=== PATIENT | male | born 1950 | race Caucasian/White ===

== ENCOUNTER 2020-01-17 13:42 | Emergency (ER) | payer MEDICARE, SELFPAY ==
[2020-01-17 13:43] VITALS: PULSE 65
[2020-01-17 13:46] VITALS: PULSE 72; RESP 18; TEMP 36.7; O2SAT 100; BMI 43.9
[2020-01-17 13:54] VITALS: BP 159/67; PULSE 69; RESP 16; O2SAT 95
--- NOTE | 2020-01-17 13:54 | ED_ITS ---
HPI - Extremity Problem General: Chief complaint: Extremity Problem,Nontraumatic Stated complaint: left foot swelling Time Seen by Provider: 01/17/20 13:54 History of Present Illness: HPI Narrative: Patient is a 69-year-old male who comes into the ED with left ankle and foot pain. Symptoms started 3 days ago and he denies any trauma or injury. Patient says he has had gout in the past and joint pain in the past. This pain seems to be similar to his gout pain in the past. He has swelling in his left ankle and it tender and painful when he puts weight on his left foot. His left big toe region has some swelling and is tender to the touch as well. Both areas are also warm to to the touch. Patient denies any past blood clots, DVTs or PE. Associated symptoms: Deny chest pain, fever(s) or rash Review of Systems Const: Denies: fever, chills or fatigue Eyes: Denies: change in vision or eye discomfort ENMT: Denies: throat pain, painful swallowing, nasal discharge or nasal congestion Card: Denies: chest pain, palpitations, edema, swelling of feet/ankles, shortness of breath on exertion or shortness of breath when lying down Resp: Denies: shortness of breath, productive cough or non-productive cough GI: Denies: abdominal pain, nausea, vomiting, diarrhea, constipation or blood in stool : Denies: flank pain, difficulty urinating, painful urination or blood in urine Musc: Reports: extremity swelling (left ankle and left great toe) and joint warmth (left ankle and left great toe); Denies: neck pain or back pain Skin/Breast: Denies: rash or new lesion Neuro: Denies: headache, numbness in extremities or weakness in extremities [facility] ED PFSH: Social History Smoking and tobacco status: former smoker Physical Exam Const: COMMON NORMALS: oriented x3 HENMT: COMMON NORMALS: normocephalic HEAD & SCALP: normocephalic MOUTH: oral and palatal mucosa normal THROAT: posterior oropharynx normal and uvula midline Neck/C-Spine: COMMON NORMALS: supple GENERAL: Yes normal visual inspection Resp: COMMON NORMALS: normal respiratory effort, no retractions, no use of accessory muscles and clear to auscultation bilaterally AUSCULTATION: clear to auscultation bilaterally Cardio: COMMON NORMALS: regular rate, regular rhythm, S1 normal heart sound, S2 normal heart sound, no gallops, no clicks, no murmurs and peripheral pulses 2+ throughout RATE: regular rate RHYTHM: regular rhythm HEART SOUNDS: S1 normal and S2 normal PERIPHERAL PULSES: pulses 2+ throughout GI: COMMON NORMALS: normal to inspection, nondistended, normoactive bowel sounds, soft to palpation, non-tender and no masses PALPATION: Yes soft : COMMON NORMALS: Yes no CVA tenderness BLADDER/KIDNEY EXAM: Yes no CVA tenderness Back/Pelvis: COMMON NORMALS: no CVA tenderness Extremity: LEFT LOWER EXTREMITY: Yes ankle joint Left ankle: Yes inspection (Erythema, warmth around ankle joint. Some mild swelling.), Yes palpation (tender around lateral ankle joint), Yes ROM (limited due to pain) and Yes neurovascular exam (intact) and Yes foot & digits Left foot and digits: Yes inspection (Erythema and warmth over metatarsophalangeal joint), Yes palpation (tender), Yes ROM (limited due to pain), Yes neurovascular exam (intact) and Yes tendon exam (intact) Neuro: COMMON NORMALS: oriented x3 and moves all extremities Skin: COMMON NORMALS: no rashes or lesions noted GENERAL SKIN EXAM: no rashes or lesions noted Course Vital Signs: Vital signs: Vital Signs Temperature 98.0 F 01/17/20 13:46 Pulse Rate 63 01/17/20 16:20 Respiratory Rate 18 01/17/20 16:20 Blood Pressure 163/92 01/17/20 16:20 Pulse Oximetry 99 01/17/20 16:20 MDM - Extremity (Nontraumatic) MDM Narrative: Medical decision making narrative: Patient is a 69-year-old male who comes into the ED with left lower extremity pain and swelling. An ultrasound venous duplex of his left lower extremity was ordered and it ruled out any blood clot. Physical exam is remarkable for tenderness, erythema and warmth over the left lateral ankle joint and the left metatarsophalangeal joint. Patient has an extensive history of gout. Patient was diagnosed with gout in put on colchicine and allopurinol. I discussed with patient the importance of following up with his PCP in 5 to 7 days for reevaluation. I told the patient if the symptoms are not improving on these medications after a 3 days he can return to the ED or go to his scheduled PCP follow-up. Imaging Data^: Xray Ortho: Attestation: I personally reviewed and interpreted this imaging study as fol lows: Radiologist's impression: [address] [place] [address] XRay Report Signed Patient: Jorge Conn Unit #: [id number] : 1950 Age/Sex: 69 / M ADM Date: 01/17/20 Loc: ER Room/Bed: Attending Dr: Ordering Provider/Ordering MD: Torres Garcia Date of Service: 01/17/20 Procedure(s): XR ankle LT 2V 06572 Accession Number(s): [id number] Report Number: [id number] PROCEDURE INFORMATION: Exam: XR Left Ankle Exam date and time: 01/17/2020 2:25 PM Age: 69 years old Clinical indication: Pain; Swelling, leg or foot; Ankle and foot; Left; Additional info: Pain and swelling TECHNIQUE: Imaging protocol: XR Left ankle. Views: 1 or 2 views. COMPARISON: No relevant prior studies available. FINDINGS: Bones/joints: No acute fracture. No dislocation. Prominent calcaneal spur noted. Degenerative changes at the tibiotalar joint. Soft tissues: Mild bilateral ankle edema. XR/XR ankle LT 2V [id number] IMPRESSION: No acute fracture. Mild bilateral ankle edema. Dictated By: José Luis Ag MD Signed By: José Luis Ag MD Signed Date/Time: 01/17/20 1531 DD/ 1530 Other Xray: Attestation: I personally reviewed and interpreted this imaging study as follows : Radiologist's impression: [address] [place] [address] XRay Report Signed Patient: Jorge Conn Unit #: [id number] : 1950 Age/Sex: 69 / M ADM Date: 01/17/20 Loc: ER Room/Bed: Attending Dr: Ordering Provider/Ordering MD: Torres Garcia Date of Service: 01/17/20 Procedure(s): XR foot LT 2V 34799 Accession Number(s): [id number] Report Number: [id number] PROCEDURE INFORMATION: Exam: XR Left Foot Exam date and time: 01/17/2020 2:25 PM Age: 69 years old Clinical indication: Pain; Swelling, leg or foot; Ankle and foot; Left; Additional info: Pain and swelling in big toe TECHNIQUE: Imaging protocol: XR Left foot. Views: 1 or 2 views. COMPARISON: No relevant prior studies available. FINDINGS: Bones/joints: No acute fracture. No dislocation. Degenerative changes are noted. Soft tissues: Soft tissue edema of the great toe. XR/XR foot LT 2V [id number] IMPRESSION: No acute fracture. Mild soft tissue edema of the great toe. Dictated By: José Luis Ag MD Signed By: José Luis Ag MD Signed Date/Time: 01/17/20 1533 DD/ 1532 US Vascular: Attestation: I personally reviewed and interpreted this imaging study as follows: Radiologist's impression: Prelim report of ultrasound venous duplex of the left lower extremity?no clots or DVT seen upon exam. Discharge Plan Discharge Patient Disposition: Home, Self-Care Clinical Impression: Gout Qualifiers: Gout site: ankle Gout etiology: unspecified cause Chronicity: acute Laterality: left Qualified Code(s): M10.9 - Gout, unspecified Condition: Stable Prescriptions: New allopurinol 100 mg tablet 100 mg PO BID Qty: 30 RF: 0 colchicine 0.6 mg tablet 0.6 mg PO DAILY Qty: 14 RF: 0 No Action chlorthalidone 25 mg tablet 25 mg PO BID PRN (Reason: Edema) RF: 0 Aspir-81 81 mg Tablet,Delayed Release (Dr/Ec) 81 mg PO DAILY RF: 0 olmesartan 40 mg tablet 40 mg PO DAILY RF: 0 Natural Herb Pill See Rx Instructions .ROUTE .COMPLEX RF: 0 Vitamin B-12 1 tab PO DAILY RF: 0 Discharge Orders: Discharge Order (Routine); Ordered 01/17/20 Ordered By: Torres Garcia Referrals: Ivanna Romero DO [Primary Care Provider] - Discharge Diet: Regular Discharge Activity: Increase activity as tolerated Patient Instructions: Gout Activity Restrictions/Additional Instructions: Follow-up with your PCP in 5 days for reevaluation. Take the allopurinol (is used for gout prevention) as prescribed. The colchicine (treats the acute pain) you can take up to 2 tabs daily as needed until acute pain resolves. Make sure to follow-up with your PCP to get pain reevaluated. Drink plenty of fluids and stay hydrated. Discharge Date/Time: 01/17/20 16:26 Coding Level of Care Code ED Analyst [employer] for Maria E Fwspencer Exam Comprehensive
--- NOTE | 2020-01-17 14:21 | USR_ITS ---
PROCEDURE INFORMATION: Exam: US Duplex Left Lower Extremity Veins, Limited Exam date and time: 01/17/2020 2:22 PM Age: 69 years old Clinical indication: Pain; Leg, lower; Left; Additional info: Pain and swelling in lower left leg. No injury TECHNIQUE: Imaging protocol: Real-time Duplex ultrasound of the Left Lower Extremity with 2-D ordonez scale, color Doppler flow and spectral waveform analysis with image documentation. Limited exam focused on the left lower extremity veins. COMPARISON: No relevant prior studies available. FINDINGS: Left deep veins: Unremarkable. The common femoral, femoral, proximal profunda femoral and popliteal veins are patent without thrombus. Normal Doppler waveforms. Normal compressibility and/or augmentation response. Left superficial veins: Unremarkable. Saphenofemoral junction is patent without thrombus. Soft tissues: Unremarkable. US/CV venous duplex [facility] [id number] IMPRESSION: No acute findings. No evidence of deep vein thrombosis.
--- NOTE | 2020-01-17 14:22 | XRR_ITS ---
PROCEDURE INFORMATION: Exam: XR Left Foot Exam date and time: 01/17/2020 2:25 PM Age: 69 years old Clinical indication: Pain; Swelling, leg or foot; Ankle and foot; Left; Additional info: Pain and swelling in big toe TECHNIQUE: Imaging protocol: XR Left foot. Views: 1 or 2 views. COMPARISON: No relevant prior studies available. FINDINGS: Bones/joints: No acute fracture. No dislocation. Degenerative changes are noted. Soft tissues: Soft tissue edema of the great toe. XR/XR foot LT 2V [id number] IMPRESSION: No acute fracture. Mild soft tissue edema of the great toe.
--- NOTE | 2020-01-17 14:22 | XRR_ITS ---
PROCEDURE INFORMATION: Exam: XR Left Ankle Exam date and time: 01/17/2020 2:25 PM Age: 69 years old Clinical indication: Pain; Swelling, leg or foot; Ankle and foot; Left; Additional info: Pain and swelling TECHNIQUE: Imaging protocol: XR Left ankle. Views: 1 or 2 views. COMPARISON: No relevant prior studies available. FINDINGS: Bones/joints: No acute fracture. No dislocation. Prominent calcaneal spur noted. Degenerative changes at the tibiotalar joint. Soft tissues: Mild bilateral ankle edema. XR/XR ankle LT 2V [id number] IMPRESSION: No acute fracture. Mild bilateral ankle edema.
[2020-01-17] MEDS: HYDROcodone-acetaminophen 7.5-325 mg Tablet 1 TAB PO (14:34)
[2020-01-17] MEDS: colchicine 0.6 mg Tablet 1.2 MG PO (16:19)
[2020-01-17 16:20] VITALS: BP 163/92; PULSE 63; RESP 18; O2SAT 99
== END 2020-01-17 16:26 | disposition home or self-care (01) ==
PROVIDERS: Emergency Provider Physician Assistant; Family Provider Family Medicine; PCP Family Medicine
DX: M10.9 Gout, unspecified (principal); Z87.891 Personal history of nicotine dependence; M79.662 Pain in left lower leg
CPT/HCPCS: 12345; 73600; 73620; 93971; 99281; 99283

== ENCOUNTER 2021-03-13 05:58 | Emergency (ER) | payer MEDICARE, SELFPAY ==
[2021-03-13 05:59] VITALS: BP 252/130; PULSE 64; RESP 17; TEMP 36.7; O2SAT 96; BMI 44.3
--- NOTE | 2021-03-13 06:02 | ECG_ITS ---
[facility] Test Date: 2021-03-13 Pat Name: Jorge Conn Department: Room: Gender: Male Insurance Counsel: : 1950 Requested By: James Whitaker Order Number: [id number] Rafita MD: Charlotte Tijerina M.D. Measurements Intervals [place] Rate: 66 P: 40 [place]: 202 QRS: 18 QRSD: 88 T: 34 QT: 415 QTc: 437 Interpretive Statements SINUS RHYTHM POSSIBLE LEFT ATRIAL ENLARGEMENT [-0.1mV P WAVE IN V1/V2] No previous ECG available for comparison Electronically Signed On 03-14-2021 9:30:41 CDT by Charlotte Tijerina M.D. [id number]
--- NOTE | 2021-03-13 06:02 | ED_ITS ---
HPI - SOB/Dyspnea General: Chief Complaint: Abdominal Pain Stated Complaint: sob Time Seen by Provider: 03/13/21 06:00 History of Present Illness: HPI Narrative: 70-year-old male presents to the emergency room with complaint of shortness of breath. Blood pressures been elevated despite oral antihypertensives with no relief. Initially on arrival his blood pressure was 252/130 he denies any headache denies any nausea vomiting but generally not feeling well. Biggest complaint at the initial presentation is abdominal pain with distention. He does not wear his CPAP. He also has increased edema of his lower extremities and orthopnea. Some vague chest pain as well. MD elicited complaint: shortness of breath, cough and chest pain Onset (ago): hour(s) Context: elevated blood glucose Timing: constant Severity: moderate Exacerbating factors: lying flat and exertion Relieving factors: rest and upright position Associated symptoms: Deny abdominal pain, chest congestion, chest pain, cough, diaphoresis, dizziness, extremity pain, fever(s), hemoptysis, lightheadedness, myalgias, nausea, orthopnea, palpitations, paresthesias, polydipsia, polyuria, rash, sense of impending doom, syncope or vomiting Treatment prior to arrival: none Review of Systems Const: Denies: fever(s) or diaphoresis ENMT: Denies: throat pain, ear or mastoid pain, nasal discharge or nasal congestion Card: Denies: chest pain, palpitations, lightheadedness, syncope or orthopnea Resp: Denies: hemoptysis or chest congestion GI: Denies: abdominal pain, nausea or vomiting : Denies: flank pain, dysuria, urinary frequency or urinary urgency Musc: Denies: extremity pain Skin/Breast: Denies: rash or pruritus Neuro: Denies: dizziness Endo: Denies: polyuria or polydipsia PFS ED PFSH: Social History Smoking and tobacco status: former smoker Physical Exam Const: COMMON NORMALS: no acute distress GENERAL APPEARANCE: cooperative and comfortable ORIENTATION/CONSCIOUSNESS: Yes awake, Yes oriented to person, Yes oriented to place and Yes oriented to time HENMT: COMMON NORMALS: normocephalic, atraumatic, hearing grossly normal bilaterally, external ears normal, EAC's normal, TM's normal bilaterally, Normal nasal mucous membranes and turbinates present, moist oral mucous membranes and oropharynx normal HEAD & SCALP: normocephalic and atraumatic NOSE: Normal nasal mucous membranes and turbinates present EXTERNAL EAR: Yes external ears normal EXTERNAL AUDITORY CANAL: EAC's normal TYMPANIC MEMBRANE: TM's normal bilaterally Eye: COMMON NORMALS: Equal, round and reactive pupils present, EOMs intact bilaterally, conjunctivae normal and no scleral icterus CONJUNCTIVA: Yes conjunctivae normal PUPIL: Yes Equal, round and reactive pupils present Neck/C-Spine: COMMON NORMALS: full ROM, no lymphadenopathy, supple and no JVD Lymph: LYMPHATIC: no lymphadenopathy noted and no lymphedema noted Resp: COMMON NORMALS: normal respiratory effort, No retractions, No use of accessory muscles and clear to auscultation bilaterally AUSCULTATION: clear to auscultation bilaterally Cardio: COMMON NORMALS: no JVD, regular rate, regular rhythm and No murmurs present (Cardio) RATE: regular rate RHYTHM: regular rhythm GI: COMMON NORMALS: Soft to palpation and No hepatosplenomegaly present AUSCULTATION: Yes normoactive bowel sounds PALPATION: Yes Soft to palpation, No Tenderness to palpation present (GI), No Guarding due to palpation present (GI) and Yes No hepatosplenomegaly present Extremity: COMMON NORMALS: normal to inspection, capillary refill normal, no clubbing, cyanosis or edema, no calf tenderness and no pedal edema Neuro: SENSORIUM/ORIENTATION: Yes oriented to person, Yes oriented to place and Yes oriented to time Skin: COMMON NORMALS: no rashes or lesions noted GENERAL SKIN EXAM: no rashes or lesions noted Course Vital Signs: Vital signs: Vital Signs Temperature 98.1 F 03/13/21 05:59 Pulse Rate 81 03/13/21 09:58 Respiratory Rate 28 H 03/13/21 09:58 Blood Pressure 180/82 03/13/21 09:58 Pulse Oximetry 98 03/13/21 09:58 MDM - SOB/Dyspnea MDM Narrative: Medical decision making narrative: Reviewed findings with the patient. He does need to improve on blood pressure control and improve compliance with his CPAP as that will affect his blood pressure as well. We will increase his hydralazine to 50 4 times daily add isosorbide mononitrate 30 daily and also add amlodipine. Serial troponins were negative. EKG did not show anything acute return if his problems follow-up with his primary care doctor within the next 2 to 3 days. Lab Data: Labs: Lab Results 03/13/21 03/13/21 03/13/21 Range/Units 05:10 05:10 05:10 WBC 9.1 (4.0-10.0) 10^3/ uL RBC 4.92 (4.1-5.3) 10^6/u L Hgb 14.0 (11.7-16.6) g/dL Hct 44.6 (42.0-52.0) % MCV 90.7 (80-94) fL MCH 28.5 (28.0-34.0) pg MCHC 31.4 (30.0-36.0) g/dL RDW 14.4 (12.1-15.1) % Plt Count 248 (130-400) 10^3/c mm MPV 12.4 H (7.4-10.4) fL Neut % (Auto) 55.2 % Lymph % (Auto) 31.5 % Mcnairy % (Auto) 8.6 % Eos % (Auto) 3.3 % Baso % (Auto) 0.7 % Neut # (Auto) 5.01 (1.8-7.7) 10^3/u L Lymph # (Auto) 2.9 (0.8-4.8) 10^3/u L Mcnairy # (Auto) 0.8 (0.2-0.9) 10^3/u L Eos # (Auto) 0.3 (0.0-0.8) 10^3/u L Baso # (Auto) 0.1 (0.0-0.1) 10^3/u L Nucleated RBC % (a uto) 0 % Nucleated RBCs # 0.0 /100WBC Sodium 138 (136-145) mmol/L Potassium 4.1 (3.5-5.1) mmol/L Chloride 104 (98-107) mmol/L Carbon Dioxide 25 (22-29) mmol/L Anion Gap 13.1 (5-19) BUN 19 (8-23) mg/dL Creatinine 0.9 (0.7-1.2) mg/dL GFR Calculation Not Reportable Glucose 91 (65-115) mg/dL Calculated Osmolal ity 288 (285-295) mOsm/k g Calcium 8.6 (8.5-10.5) mg/dL Total Bilirubin 0.5 (0.15-1.2) mg/dL AST 18 (0-40) U/L ALT 19 (0-41) U/L Alkaline Phosphata se 79 (40-130) IU/L Troponin T Baselin e 16 H (0-15) ng/L Troponin T 120 Min latosha (0-15) ng/L Delta Troponin T (0-10) ABS# Total Protein 6.4 L (6.6-8.7) g/dL Albumin 3.8 (3.5-5.2) g/dL Globulin 2.6 (1.3-4.6) g/dL 03/13/21 Range/Units 07:59 WBC (4.0-10.0) 10^3/ uL RBC (4.1-5.3) 10^6/u L Hgb (11.7-16.6) g/dL Hct (42.0-52.0) % MCV (80-94) fL MCH (28.0-34.0) pg MCHC (30.0-36.0) g/dL RDW (12.1-15.1) % Plt Count (130-400) 10^3/c mm MPV (7.4-10.4) fL Neut % (Auto) % Lymph % (Auto) % Mcnairy % (Auto) % Eos % (Auto) % Baso % (Auto) % Neut # (Auto) (1.8-7.7) 10^3/u L Lymph # (Auto) (0.8-4.8) 10^3/u L Mcnairy # (Auto) (0.2-0.9) 10^3/u L Eos # (Auto) (0.0-0.8) 10^3/u L Baso # (Auto) (0.0-0.1) 10^3/u L Nucleated RBC % (a uto) % Nucleated RBCs # /100WBC Sodium (136-145) mmol/L Potassium (3.5-5.1) mmol/L Chloride (98-107) mmol/L Carbon Dioxide (22-29) mmol/L Anion Gap (5-19) BUN (8-23) mg/dL Creatinine (0.7-1.2) mg/dL GFR Calculation Glucose (65-115) mg/dL Calculated Osmolal ity (285-295) mOsm/k g Calcium (8.5-10.5) mg/dL Total Bilirubin (0.15-1.2) mg/dL AST (0-40) U/L ALT (0-41) U/L Alkaline Phosphata se (40-130) IU/L Troponin T Baselin e (0-15) ng/L Troponin T 120 Min latosha 12.42 (0-15) ng/L Delta Troponin T -3.58 L (0-10) ABS# Total Protein (6.6-8.7) g/dL Albumin (3.5-5.2) g/dL Globulin (1.3-4.6) g/dL Discharge Plan Discharge Patient Disposition: Home Clinical Impression: Benign essential HTN, Apnea, sleep Condition: Stable Prescriptions: New hydralazine 50 mg tablet 50 mg PO QID Qty: 90 RF: 0 isosorbide mononitrate 30 mg tablet extended release 24 hr 30 mg PO QAM Qty: 30 RF: 0 amlodipine 5 mg tablet 5 mg PO DAILY Qty: 30 RF: 0 No Action chlorthalidone 25 mg tablet 25 mg PO BID PRN (Reason: Edema) RF: 0 Aspir-81 81 mg Tablet,Delayed Release (Dr/Ec) 81 mg PO DAILY RF: 0 olmesartan 40 mg tablet 40 mg PO DAILY RF: 0 Natural Herb Pill See Rx Instructions .ROUTE .COMPLEX RF: 0 Vitamin B-12 1 tab PO DAILY RF: 0 allopurinol 100 mg tablet 100 mg PO BID Qty: 30 RF: 0 colchicine 0.6 mg tablet 0.6 mg PO DAILY Qty: 14 RF: 0 Discharge Orders: Discharge ED (Routine); Ordered 03/13/21 Ordered By: James Hester Discharge Diet: Usual diet Discharge Activity: Limit activity as instructed Patient Instructions: Opioid Safety Activity Restrictions/Additional Instructions: Case management will get you an appointment with Dr. Carrie David later this week. Coding Level of Care Code ED Medical Billing Assistant for Maria E Fwd Exam Comprehensive
--- NOTE | 2021-03-13 06:03 | XRR_ITS ---
PROCEDURE INFORMATION: Exam: XR Chest Exam date and time: 03/13/2021 6:09 AM Age: 70 years old Clinical indication: Chest pain; Patient HX: Chest tightness since this am; Additional info: Dyspnea/cough TECHNIQUE: Imaging protocol: XR of the chest. Views: 1 view. COMPARISON: No relevant prior studies available. FINDINGS: Lungs: Slightly increased markings in the right lung base possibly due to atelectasis. Relatively shallow lung volumes. No consolidation. 7 mm calcified granuloma in the left lower perihilar region not excluded. Pleural spaces: No pneumothorax or apparent pleural fluid. Heart/Mediastinum: No cardiomegaly. Vasculature: Aortic elongation. Bones/joints: No acute finding. XR/XR chest 1V portable [id number] IMPRESSION: Possible slight atelectasis in the right lung base. No acute findings elsewhere.
[2021-03-13 06:26] LABS: Basophils # 0.1 10^3/uL (0.0-0.1); Basophils % 0.7 %; Eosinophils # 0.3 10^3/uL (0.0-0.8); Eosinophils % 3.3 %; Hematocrit 44.6 % (42.0-52.0); Lymphocytes # 2.9 10^3/uL (0.8-4.8); Lymphocytes % 31.5 %; Mean Corpuscular HGB Conc 31.4 g/dL (30.0-36.0); Mean Corpuscular Hemoglobin 28.5 pg (28.0-34.0); Mean Corpuscular Volume 90.7 fL (80-94); Mean Platelet Volume 12.4 fL (7.4-10.4); Monocytes # 0.8 10^3/uL (0.2-0.9); Monocytes % 8.6 %; Neutrophils # 5.01 10^3/uL (1.8-7.7); Neutrophils % 55.2 %; Nucleated Red Blood Cells % 0 %; Platelet Count 248 10^3/cmm (130-400); Red Blood Count 4.92 10^6/uL (4.1-5.3); Red Cell Distribution Width 14.4 % (12.1-15.1); White Blood Count 9.1 10^3/uL (4.0-10.0)
[2021-03-13 06:43] LABS: Alanine Aminotransferase 19 U/L (0-41); Albumin Level 3.8 g/dL (3.5-5.2); Alkaline Phosphatase 79 IU/L (40-130); Anion Gap 13.1 (5-19); Aspartate Amino Transferase 18 U/L (0-40); Blood Urea Nitrogen 19 mg/dL (8-23); Calcium 8.6 mg/dL (8.5-10.5); Carbon Dioxide 25 mmol/L (22-29); Chloride 104 mmol/L (98-107); Globulin 2.6 g/dL (1.3-4.6); Glucose 91 mg/dL (65-115); Osmolality Calculated 288 mOsm/kg (285-295); Potassium 4.1 mmol/L (3.5-5.1); Sodium 138 mmol/L (136-145); Total Bilirubin 0.5 mg/dL (0.15-1.2); Total Protein 6.4 g/dL (6.6-8.7)
[2021-03-13 06:45] LABS: Troponin(5th) Baseline 16 ng/L (0-15)
[2021-03-13 07:00] VITALS: BP 181/97; PULSE 65; RESP 17; O2SAT 97
[2021-03-13] MEDS: hyDRALAzine 20 mg/mL INJ 1 mL IVP (07:02)
[2021-03-13 07:15] VITALS: BP 200/95; PULSE 75; RESP 18; O2SAT 94
[2021-03-13] MEDS: nitroglycerin 1 gm/inch oint Pkt 1 INCH TOPICAL (07:33)
--- NOTE | 2021-03-13 07:48 | CT_ITS ---
WS: [id number] CT ABDOMEN AND PELVIS WITH CONTRAST HISTORY: abd pain TECHNIQUE: Imaging performed of the abdomen and pelvis with IV contrast. Single phase imaging of the abdomen. Coronal and sagittal reformats are submitted. All CT scans at [facility] use at least one of these dose optimization techniques: automated exposure control; mA and/or kV adjustment per patient size (includes targeted exams where dose is matched to clinical indication); or iterativ e reconstruction. IV CONTRAST: Omnipaque 300; 95 mL IV. Oral contrast: No DLP: 1892.9 mGy.cm COMPARISON: 03/18/2017 Lower thorax: Mild dependent changes and groundglass attenuation at the lung bases. Very minimal pleu ral thickening and increased pleural fat. Heart is moderately enlarged with a small pericardial effus ion. Small hiatal hernia. Liver/biliary system: Mildly enlarged liver. No bile duct dilatation or mass. Gallbladder: Normal. No gallstones or wall thickening. No pericholecystic fluid. Pancreas: Normal size pancreas and pancreatic duct. No adjacent inflammation. Spleen: Normal size spleen with several granulomata. Adrenal glands: Normal. Right kidney: Normal size kidney. There are a few scattered areas of decreased attenuation in the upp er pole which are stable and probably small cysts. No obstruction or perinephric stranding. Left kidney: Normal size kidney with no perinephric stranding. There are a few scattered hypodensitie s within the cortex which are too small to characterize. These are probably present on the prior exam ination also. Aorta: Mild atherosclerosis with no aneurysm. Lymphadenopathy: No significant adenopathy. There are a few small stable aortocaval and retroperitone al lymph nodes which are less than a centimeter. Free fluid: None. GI tract: Normal appendix. Mild constipation. Overlapping loops of colon. There are numerous divertic cortez in the descending and sigmoid colon without evidence for acute diverticulitis. Abdominal wall: Small umbilical hernia contains fat only. Pelvis: Urinary bladder is negative. Prostate gland is slightly enlarged. There is a calcification po sterior to the seminal vesicles which may be a phlebolith. Does not appear to be causing any signific ant inflammatory process. Inguinal canals are patent bilaterally containing fat only. Bones: Moderate lumbar spondylitic changes. Most significant at the L2-3 level. Mild bilateral sclero sis involving the SI joints. Multilevel areas of central and foraminal stenosis within the lumbar spi ne. CT/CT abdomen pelvis w con* [id number] IMPRESSION: 1. No acute abdominal or pelvic abnormalities are identified. 2. Normal appendix. 3. Diverticulosis without evidence for acute diverticulitis at this time. 4. Mild dependent changes at the lung bases. 5. Small pericardial effusion. 6. Too small to characterize hypodensities within each kidney.
--- NOTE | 2021-03-13 08:02 | ECG_ITS ---
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 Measurements Intervals [place] Rate: 71 P: 38 NV: 197 QRS: 29 QRSD: 94 T: 29 QT: 416 QTc: 454 Interpretive Statements SINUS RHYTHM POSSIBLE LEFT ATRIAL ENLARGEMENT [-0.1mV P WAVE IN V1/V2] Compared to ECG 03/13/2021 06:18:53 No significant changes Electronically Signed On 03-14-2021 17:39:21 CDT by Charlotte Tijerina M.D. [email or web address]
--- NOTE | 2021-03-13 08:09 | PC.NURSE ---
Patient to CT
[2021-03-13] MEDS: iohexol 300 mg/mL 100 mL Btl IV (08:15)
[2021-03-13 08:31] LABS: Troponin 5 2HR 12.42 ng/L (0-15)
[2021-03-13 08:33] LABS: Troponin 5 2HR Delta -3.58 ABS# (0-10)
[2021-03-13 09:30] VITALS: BP 194/79; PULSE 71; RESP 18; O2SAT 91
[2021-03-13] MEDS: hyDRALAzine 50 mg Tablet PO (09:35)
[2021-03-13] MEDS: amlodipine 5 mg Tablet PO (09:35)
[2021-03-13] MEDS: HYDROcodone-acetaminophen 5-325 mg Tablet 1 TAB PO (09:35)
[2021-03-13 09:58] VITALS: BP 180/82; PULSE 81; RESP 28; O2SAT 98
--- NOTE | 2021-03-13 11:19 | DCPLANNER ---
catering manager was asked to schedule a follow up appointment for patient with his primary care physician. catering manager spoke with patients , patient sees Dr. Molina at [facility]. catering manager called the office of Dr. Molina, gave clinic patients information, a follow up appointment was scheduled for Saturday, March 15, 2021 at 2:00 with Luz. catering manager called patient, spoke with his , gave her the appointment information.
--- NOTE | 2021-05-24 08:58 | DCPLANNER ---
Patient had a follow up appointment scheduled on 03.15.[address] Molina -patient did attend appointment.
== END 2021-03-13 09:59 | disposition home or self-care (01) ==
PROVIDERS: Emergency Provider Family Medicine
DX: G47.30 Sleep apnea, unspecified (principal); I10 Essential (primary) hypertension; Z79.82 Long term (current) use of aspirin; Z87.891 Personal history of nicotine dependence
CPT/HCPCS: 71045; 74177; 80053; 84484; 85025; 93005; 96374; 99284; J0360; Q9967